=== PATIENT | female | born 1990 | race Caucasian/White ===

== ENCOUNTER 2020-09-08 15:07 | Inpatient (IN) | payer OTHER ==
[2020-09-08] MEDS ORDERED: SODIUM CHLORIDE 0.9% 500 ML INFUS.BAG IV ONE (15:15)
[2020-09-08 15:21] VITALS: BMI 23.0
[2020-09-08 15:56] LABS: BASO % 0.1 % (0-2.0); HEMATOCRIT 25.1 % (32.4-45.2); HEMOGLOBIN 8.2 GM/dL (10.7-15.3); LYMPH % 3.6 % (8-40); MCH 32.1 pg (25.7-33.7); MCHC 32.7 g/dl (32.0-36.0); MEAN CELL VOLUME 98.3 fl (80-96); MEAN PLT VOLUME 7.1 fl (7.5-11.1); MONO % 4.3 % (3.8-10.2); PLATELET COUNT 116 K/MM3 (134-434); RBC 2.55 M/mm3 (3.60-5.2); WHITE BLOOD COUNT 16.9 K/mm3 (4.0-10.0)
[2020-09-08] MEDS ORDERED: METHYLERGONOVINE MALEATE 0.2 MG/1 ML AMP IM ONE (15:56)
[2020-09-08 16:14] LABS: CALCIUM 7.4 mg/dL (8.5-10.1)
[2020-09-08 16:15] LABS: ALBUMIN 2.2 g/dl (3.4-5.0); BLOOD UREA NITROGEN 11.4 mg/dL (7-18); MAGNESIUM 1.5 mg/dL (1.8-2.4)
[2020-09-08 16:18] LABS: CREATININE 0.7 mg/dL (0.55-1.3)
[2020-09-08 16:20] LABS: BILIRUBIN,TOTAL 0.7 mg/dL (0.2-1)
[2020-09-08] MEDS ORDERED: NOREPINEPHRINE BITARTRATE 4 MG/4 ML ML IV ONE ×3 (16:49→16:51)
[2020-09-08] MEDS ORDERED: EPHEDRINE SULFATE/0.9% NACL/PF 50 MG/10 ML SYRINGE NR ONE (16:51)
[2020-09-08] MEDS ORDERED: ROCURONIUM BROMIDE 50 MG/5 ML SYRINGE ONE ×2 (16:53→18:46)
[2020-09-08] MEDS ORDERED: MISOPROSTOL 200 MCG TABLET PV ONE (16:57)
[2020-09-08] MEDS ORDERED: NOREPINEPHRINE NS PREMIX 8,000 MCG/500 ML BAG IVPB SCH (17:00)
[2020-09-08] MEDS ORDERED: ETOMIDATE 20 MG/10 ML AMPUL IVPUSH ONE (17:01)
[2020-09-08] MEDS ORDERED: MIDAZOLAM HCL 2 MG/2 ML SINGLE DOSE VIAL ONE ×5 (17:16→18:46)
[2020-09-08 18:02] LABS: BASO % 0.2 % (0-2.0); HEMATOCRIT 29.8 % (32.4-45.2); HEMOGLOBIN 9.8 GM/dL (10.7-15.3); LYMPH % 3.1 % (8-40); MCH 30.2 pg (25.7-33.7); MEAN CELL VOLUME 91.4 fl (80-96); MONO % 5.8 % (3.8-10.2); NEUT % 90.9 % (42.8-82.8); RBC 3.26 M/mm3 (3.60-5.2); RDW 14.8 % (11.6-15.6); WHITE BLOOD COUNT 17.4 K/mm3 (4.0-10.0)
[2020-09-08 18:12] LABS: ACTIVATED PTT 52.1 SECONDS (25.2-36.5)
[2020-09-08 18:29] LABS: CHLORIDE 112 mmol/L (98-107); SODIUM 140 mmol/L (136-145)
[2020-09-08 18:32] LABS: ANION GAP 10 MMOL/L (8-16); BLOOD UREA NITROGEN 12.3 mg/dL (7-18); CO2 18 mmol/L (21-32); GLUCOSE,RANDOM 148 mg/dL (74-106)
[2020-09-08] MEDS ORDERED: ONDANSETRON 4 MG/2 ML VIAL IVPUSH PRN (18:34)
[2020-09-08 18:35] LABS: CREATININE 0.6 mg/dL (0.55-1.3); SGOT/AST 23 U/L (15-37); SGPT/ALT 12 U/L (13-61)
[2020-09-08 18:36] LABS: BILIRUBIN,TOTAL 0.5 mg/dL (0.2-1); TOT PROT 3.4 g/dl (6.4-8.2)
[2020-09-08 18:38] LABS: ALK PHOS 26 U/L (45-117)
[2020-09-08 18:42] LABS: ALBUMIN 1.6 g/dl (3.4-5.0); CALCIUM 6.2 mg/dL (8.5-10.1)
[2020-09-08 18:51] LABS: INR 2.28 (0.83-1.09); PROTHROMBIN TIME (PATIENT) 27.4 SEC (9.7-13.0)
[2020-09-08 18:57] LABS: PLATELET COUNT 67 K/MM3 (134-434)
[2020-09-08] MEDS: LACTATED RINGERS SOLUTION 1,000 ML IV SCH ×2 (19:10→20:26)
[2020-09-08] MEDS ORDERED: NEOSTIGMINE METHYLSULFATE 0.5 MG/1 ML - 10 ML MDV ONE (19:33)
[2020-09-08] MEDS ORDERED: CALCIUM GLUCONATE 10% - 1,000 MG/10 ML VIAL IVPUSH ONE (20:27)
[2020-09-08] MEDS ORDERED: CLINDAMYCIN 900 MG PREMIX IVPB 900 MG/50 ML BAG IVPB ONE (20:40)
[2020-09-08] MEDS ORDERED: GENTAMICIN IVPB ONE (20:45)
[2020-09-08] MEDS ORDERED: DEXTROSE 5% IVPB ONE (20:45)
[2020-09-08] MEDS ORDERED: WATER IVPB ONE (20:45)
[2020-09-08] MEDS ORDERED: TRANEXAMIC ACID 1000 MG/10 ML VIAL IVPB ONE ×2 (21:20→21:44)
[2020-09-08 21:22] LABS: HEMATOCRIT 25.2 % (32.4-45.2); HEMOGLOBIN 8.4 GM/dL (10.7-15.3); MCH 30.3 pg (25.7-33.7); MCHC 33.2 g/dl (32.0-36.0); MEAN CELL VOLUME 91.2 fl (80-96); MEAN PLT VOLUME 7.4 fl (7.5-11.1); PLATELET COUNT 130 K/MM3 (134-434); RBC 2.76 M/mm3 (3.60-5.2); RDW 14.4 % (11.6-15.6); WHITE BLOOD COUNT 19.2 K/mm3 (4.0-10.0)
[2020-09-08 21:35] LABS: INR 1.35 (0.83-1.09); PROTHROMBIN TIME (PATIENT) 16.5 SEC (9.7-13.0)
[2020-09-08 21:38] LABS: ACTIVATED PTT 29.2 SECONDS (25.2-36.5)
[2020-09-08] MEDS ORDERED: SODIUM CHLORIDE 500 ML IV STA (21:58)
[2020-09-08] MEDS ORDERED: LACTATED RINGERS SOLUTION 1,000 ML/1,000 ML INFUS.BAG IV SCH (22:00)
[2020-09-09 00:33] VITALS: TEMP 98.5
[2020-09-09] MEDS ORDERED: SODIUM CHLORIDE 500 ML IV STA (00:44)
[2020-09-09] MEDS ORDERED: LACTATED RINGERS SOLUTION 1,000 ML/1,000 ML INFUS.BAG IV SCH (01:00)
[2020-09-09 02:02] LABS: BASO % 0.1 % (0-2.0); HEMATOCRIT 18.6 % (32.4-45.2); LYMPH % 8.3 % (8-40); MCHC 33.7 g/dl (32.0-36.0); MEAN PLT VOLUME 7.8 fl (7.5-11.1); MONO % 11.2 % (3.8-10.2); NEUT % 80.4 % (42.8-82.8); PLATELET COUNT 94 K/MM3 (134-434); RBC 2.09 M/mm3 (3.60-5.2); RDW 15.1 % (11.6-15.6); WHITE BLOOD COUNT 16.7 K/mm3 (4.0-10.0)
[2020-09-09 02:05] LABS: INR 1.25 (0.83-1.09); PROTHROMBIN TIME (PATIENT) 15.3 SEC (9.7-13.0)
[2020-09-09 02:06] LABS: HEMOGLOBIN 6.3 GM/dL (10.7-15.3)
[2020-09-09 02:13] VITALS: BP 124/49; PULSE 82
[2020-09-09] MEDS ORDERED: MUPIROCIN 2% TOPICAL OINTMENT FOR DECOLONIZATION NS SCH (10:00)
[2020-09-09] MEDS ORDERED: CHLORHEXIDINE GLUCONATE 4% CLEANSER FOR DECOLONIZATION TP SCH (22:00)
== END 2020-09-09 02:18 | disposition short-term general hospital (02) | DRG 544 ==
LOC: JER 15:07 → JERBED 17:41 → JICU 19:49
PROVIDERS: ADMIT Internal Medicine Pulmonary Disease; ATTEND Internal Medicine Pulmonary Disease
PROC: 30233K1 Transfusion of Nonautologous Frozen Plasma into Peripheral Vein, Percutaneous Approach (ICD-10-PCS; 2020-09-08)
PROC: 30233N1 Transfusion of Nonautologous Red Blood Cells into Peripheral Vein, Percutaneous Approach (ICD-10-PCS; 2020-09-08)
PROC: 30233R1 Transfusion of Nonautologous Platelets into Peripheral Vein, Percutaneous Approach (ICD-10-PCS; 2020-09-08)
PROC: 10D17ZZ Extraction of Products of Conception, Retained, Via Natural or Artificial Opening (ICD-10-PCS; principal; 2020-09-08 17:00)
DX: O03.1 Delayed or excessive hemorrhage following incomplete spontaneous abortion (principal); O03.4 Incomplete spontaneous abortion without complication
CPT/HCPCS: 36415; 36511; 71045-TC-FY; 76856-TC; 80053; 82550; 83735; 84484; 85025; 85027; 85379; 85384; 85610; 85730; 86850; 86900; 86901; 86922; 88305-TC; 94760; 99291; 99292; C9803; P9012; P9016; P9017; P9034; P9038; P9058; U0003; U0005